=== PATIENT | female | born 1985 | race Caucasian/White ===

== ENCOUNTER 2018-01-12 03:07 | Inpatient (IN) | payer MEDICAID ==
[2018-01-12] MEDS: DEXTROSE 5%-LR 1,000 ML IV ×4 (04:18→19:17)
[2018-01-12 04:41] LABS: ADD MAN DIFF? NO
[2018-01-12] MEDS: LACTATED RINGER'S 1,000 ML IV (04:45)
[2018-01-12 04:46] LABS: WHITE BLOOD COUNT 9.5 10^3/ul (4.8-10.8)
[2018-01-12 04:47] LABS: BASOPHILS % 0.4 % (0.0-2.0); EOSINOPHILS # 0.3 10^3/ul (0.0-0.5); EOSINOPHILS % 2.7 % (0.0-7.0); HEMATOCRIT 36.2 % (37.0-47.0); HEMOGLOBIN 12.3 g/dl (12.0-16.0); LYMPHOCYTES # 1.5 10^3/ul (0.8-2.9); LYMPHOCYTES % 15.4 % (15.0-51.0); MEAN CORPUSCULAR HEMOGLOBIN 30.1 pg (29.0-33.0); MEAN CORPUSCULAR VOLUME 88.5 fl (82.0-101.0); MEAN PLATELET VOLUME 10.2 fl (7.4-10.4); MONOCYTE # 0.9 10^3/ul (0.3-0.9); MONOCYTES % 9.3 % (0.0-11.0); NEUTROPHIL # 6.6 10^3/ul (1.6-7.5); NEUTROPHILS % 69.9 % (39.0-77.0); PLATELET COUNT 237 10^3/UL (140-415); RED BLOOD COUNT 4.09 10^6/ul (4.20-5.40); RED CELL DISTRIBUTION WIDTH 13.2 % (11.5-14.5)
[2018-01-12] MEDS: BETAMET NA PHOS/AC(6 MG/ML) 5ML INJ IM (04:54)
[2018-01-12 04:56] LABS: ADD UMIC YES; UR ASCORBIC ACID NEGATIVE (NEGATIVE); UR BILIRUBIN (Dip) NEGATIVE (NEGATIVE); UR BLOOD (Dip) 3+ mg/dL (NEGATIVE); UR CLARITY SLIGHTLY CLOUDY (CLEAR); UR COLOR RED (YELLOW); UR GLUCOSE (Dip) NEGATIVE (NEGATIVE); UR KETONES (Dip) NEGATIVE (NEGATIVE); UR LEUKOCYTE ESTERASE (Dip) NEGATIVE Leu/ul (NEGATIVE); UR NITRITE (Dip) NEGATIVE (NEGATIVE); UR RBC > 182 /HPF (0-5); UR SPECIFIC GRAVITY (Dip) 1.008 (1.003-1.030); UR SQUAMOUS EPITHELIAL CELL FEW /HPF (FEW); UR TOTAL PROTEIN (Dip) 1+ mg/dl (NEGATIVE); UR UROBILINOGEN (Dip) NEGATIVE (NEGATIVE); UR WBC 2 /HPF (0-5)
[2018-01-12 05:05] LABS: INR 0.87; PARTIAL THROMBOPLASTIN TIME 24.1 Sec (25.0-35.0); PROTIME 11.9 Sec (11.9-14.9); PT RATIO 0.9
[2018-01-12 05:53] LABS: HEPATITIS B SURFACE ANTIGEN NEGATIVE (NEGATIVE)
[2018-01-12] MEDS: FERROUS SULFATE (EC) 325 MG TAB PO (08:50)
[2018-01-12] MEDS: PRENATAL VITAMIN PO (08:51)
[2018-01-12] MEDS: MAGNESIUM SULFATE 4 GM/100 ML 100 ML IV (09:24)
[2018-01-12] MEDS: MAGNESIUM SULFATE 20 GM/500 ML 500 ML IV ×2 (09:51→19:17)
[2018-01-12 12:33] LABS: ADD MAN DIFF? NO
[2018-01-12 12:41] LABS: BASOPHILS % 0.4 % (0.0-2.0); HEMATOCRIT 36.1 % (37.0-47.0); HEMOGLOBIN 12.3 g/dl (12.0-16.0); LYMPHOCYTES % 10.4 % (15.0-51.0); MEAN CORPUSCULAR HEMOGLOBIN 30.4 pg (29.0-33.0); MEAN CORPUSCULAR HGB CONC 34.1 g/dl (32.0-37.0); MEAN CORPUSCULAR VOLUME 89.4 fl (82.0-101.0); MEAN PLATELET VOLUME 10.1 fl (7.4-10.4); MONOCYTE # 0.1 10^3/ul (0.3-0.9); MONOCYTES % 1.4 % (0.0-11.0); NEUTROPHIL # 8.3 10^3/ul (1.6-7.5); NEUTROPHILS % 85.4 % (39.0-77.0); PLATELET COUNT 237 10^3/UL (140-415); RED BLOOD COUNT 4.04 10^6/ul (4.20-5.40)
[2018-01-12 12:41] LABS: WHITE BLOOD COUNT 9.7 10^3/ul (4.8-10.8)
[2018-01-12 13:32] LABS: MAGNESIUM 5.1 mg/dl (1.7-2.5)
[2018-01-12 14:57] LABS: RAPID PLASMA REAGIN NONREACTIVE (NR)
[2018-01-12] MEDS: AL HYDROX/MG HYDROX/SIMETH 30 ML CUP PO (23:10)
[2018-01-13 01:13] LABS: MAGNESIUM 6.4 mg/dl (1.7-2.5)
[2018-01-13] MEDS: BETAMET NA PHOS/AC(6 MG/ML) 5ML INJ IM (04:50)
[2018-01-13] MEDS: MAGNESIUM SULFATE 20 GM/500 ML 500 ML IV (05:03)
[2018-01-13 07:18] LABS: MAGNESIUM 6.7 mg/dl (1.7-2.5)
[2018-01-13] MEDS: LACTATED RINGER'S 1,000 ML IV ×2 (09:26→22:23)
[2018-01-13] MEDS: FERROUS SULFATE (EC) 325 MG TAB PO (09:26)
[2018-01-13] MEDS: DOCUSATE SODIUM 100 MG CAP PO (09:26)
[2018-01-13] MEDS: PRENATAL VITAMIN PO (09:26)
[2018-01-13 12:42] LABS: MAGNESIUM 6.6 mg/dl (1.7-2.5)
[2018-01-13] MEDS: NIFEdipine 10 MG CAP PO ×3 (13:55→23:57)
[2018-01-13] MEDS: AMOXICILLIN/CLAV 875 MG TAB PO ×2 (14:46→22:58)
[2018-01-14] MEDS: NIFEdipine 10 MG CAP PO (06:56)
[2018-01-14 08:53] LABS: ADD MAN DIFF? NO
[2018-01-14 09:02] LABS: BASOPHILS % 0.3 % (0.0-2.0); EOSINOPHILS # 0.1 10^3/ul (0.0-0.5); EOSINOPHILS % 0.4 % (0.0-7.0); HEMATOCRIT 31.9 % (37.0-47.0); HEMOGLOBIN 10.5 g/dl (12.0-16.0); LYMPHOCYTES # 1.8 10^3/ul (0.8-2.9); LYMPHOCYTES % 15.9 % (15.0-51.0); MEAN CORPUSCULAR HEMOGLOBIN 29.9 pg (29.0-33.0); MEAN CORPUSCULAR HGB CONC 32.9 g/dl (32.0-37.0); MEAN CORPUSCULAR VOLUME 90.9 fl (82.0-101.0); MONOCYTES % 8.5 % (0.0-11.0); NEUTROPHIL # 8.5 10^3/ul (1.6-7.5); NEUTROPHILS % 73.3 % (39.0-77.0); PLATELET COUNT 223 10^3/UL (140-415); RED BLOOD COUNT 3.51 10^6/ul (4.20-5.40)
[2018-01-14 09:02] LABS: WHITE BLOOD COUNT 11.5 10^3/ul (4.8-10.8)
[2018-01-14] MEDS: AMOXICILLIN/CLAV 875 MG TAB PO ×2 (09:28→22:19)
[2018-01-14] MEDS: PRENATAL VITAMIN PO (09:28)
[2018-01-14] MEDS: FERROUS SULFATE (EC) 325 MG TAB PO (09:28)
[2018-01-14] MEDS ORDERED: MAGNESIUM SULFATE 4 GM/100 ML 100 ML (09:53)
[2018-01-14] MEDS: MAGNESIUM SULFATE 4 GM/100 ML 100 ML IV (10:06)
[2018-01-14] MEDS: MAGNESIUM SULFATE 20 GM/500 ML 500 ML IV ×2 (10:32→21:59)
[2018-01-14] MEDS: LACTATED RINGER'S 1,000 ML IV (12:22)
[2018-01-14] MEDS: DOCUSATE SODIUM 100 MG CAP PO (23:26)
[2018-01-15 01:09] LABS: MAGNESIUM 5.8 mg/dl (1.7-2.5)
[2018-01-15] MEDS: LACTATED RINGER'S 1,000 ML IV ×2 (01:43→14:01)
[2018-01-15 07:28] LABS: INR 0.91; PROTIME 12.3 Sec (11.9-14.9)
[2018-01-15 07:29] LABS: PARTIAL THROMBOPLASTIN TIME 20.9 Sec (25.0-35.0)
[2018-01-15 07:32] LABS: ALANINE AMINOTRANSFERASE 24 IU/L (13-69); ALBUMIN 3.9 g/dl (3.3-4.9); ALBUMIN/GLOBULIN RATIO 1.34; ALKALINE PHOSPHATASE 144 IU/L (42-121); ANION GAP 15 (8-16); ASPARTATE AMINO TRANSFERASE 17 IU/L (15-46); BILIRUBIN,INDIRECT 0.3 mg/dl (0-1.1); BILIRUBIN,TOTAL 0.3 mg/dl (0.2-1.3); BLOOD UREA NITROGEN 9 mg/dl (7-20); CALCIUM 6.8 mg/dl (8.4-10.2); CARBON DIOXIDE 26 mmol/L (21-31); CHLORIDE 102 mmol/L (97-110); CREATININE 0.64 mg/dl (0.44-1.00); GLUCOSE 88 mg/dl (70-220); POTASSIUM 4.3 mmol/L (3.5-5.1); SODIUM 139 mmol/L (135-144); TOTAL PROTEIN 6.8 g/dl (6.1-8.1)
[2018-01-15] MEDS: MAGNESIUM SULFATE 20 GM/500 ML 500 ML IV ×2 (07:37→16:33)
[2018-01-15 07:57] LABS: HEPATITIS B SURFACE ANTIGEN NEGATIVE (NEGATIVE)
[2018-01-15 08:09] LABS: MAGNESIUM 6.4 mg/dl (1.7-2.5)
[2018-01-15] MEDS: FERROUS SULFATE (EC) 325 MG TAB PO (09:20)
[2018-01-15] MEDS: PRENATAL VITAMIN PO (09:21)
[2018-01-15] MEDS: DOCUSATE SODIUM 100 MG CAP PO (09:21)
[2018-01-15] MEDS: AMOXICILLIN/CLAV 875 MG TAB PO (09:28)
[2018-01-15 11:51] LABS: MAGNESIUM 6.4 mg/dl (1.7-2.5)
[2018-01-15 16:06] LABS: RAPID PLASMA REAGIN NONREACTIVE (NR)
[2018-01-15] MEDS: MAGNESIUM HYDROXIDE 30ML CUP PO (18:06)
[2018-01-15] MEDS: CEPHALEXIN 500 MG CAP PO (18:31)
[2018-01-15 18:56] LABS: MAGNESIUM 6.5 mg/dl (1.7-2.5)
[2018-01-15] MEDS: ACETAMINOPHEN 325 MG TAB PO (22:15)
[2018-01-15] MEDS: SENNA TAB PO (22:16)
[2018-01-16] MEDS: CEPHALEXIN 500 MG CAP PO ×4 (00:20→17:35)
[2018-01-16] MEDS ORDERED: OXYTOCIN 30 UNITS/LR 500 ML IV (00:28)
[2018-01-16 01:39] LABS: MAGNESIUM 6.5 mg/dl (1.7-2.5)
[2018-01-16] MEDS: LACTATED RINGER'S 1,000 ML IV ×2 (02:36→17:34)
[2018-01-16] MEDS: MAGNESIUM SULFATE 20 GM/500 ML 500 ML IV ×2 (02:40→14:10)
[2018-01-16 10:12] LABS: RUBELLA ANTIBODY - IGG <0.90 index
[2018-01-16] MEDS: FERROUS SULFATE (EC) 325 MG TAB PO (14:21)
[2018-01-16] MEDS: PRENATAL VITAMIN PO (14:22)
[2018-01-16] MEDS: NIFEdipine 10 MG CAP PO (20:29)
[2018-01-17] MEDS: NIFEdipine 10 MG CAP PO ×5 (00:25→23:46)
[2018-01-17] MEDS: CEPHALEXIN 500 MG CAP PO ×5 (00:25→23:45)
[2018-01-17] MEDS: LACTATED RINGER'S 1,000 ML IV ×2 (06:07→16:55)
[2018-01-17 06:21] LABS: ADD MAN DIFF? NO
[2018-01-17 06:41] LABS: BASOPHILS % 0.4 % (0.0-2.0); EOSINOPHILS # 0.2 10^3/ul (0.0-0.5); EOSINOPHILS % 2.2 % (0.0-7.0); HEMATOCRIT 33.4 % (37.0-47.0); HEMOGLOBIN 11.1 g/dl (12.0-16.0); LYMPHOCYTES # 1.8 10^3/ul (0.8-2.9); LYMPHOCYTES % 19.8 % (15.0-51.0); MEAN CORPUSCULAR HEMOGLOBIN 30.4 pg (29.0-33.0); MEAN CORPUSCULAR HGB CONC 33.2 g/dl (32.0-37.0); MEAN CORPUSCULAR VOLUME 91.5 fl (82.0-101.0); MEAN PLATELET VOLUME 9.9 fl (7.4-10.4); MONOCYTE # 0.7 10^3/ul (0.3-0.9); MONOCYTES % 7.7 % (0.0-11.0); NEUTROPHIL # 6.3 10^3/ul (1.6-7.5); PLATELET COUNT 236 10^3/UL (140-415); RED BLOOD COUNT 3.65 10^6/ul (4.20-5.40)
[2018-01-17 06:41] LABS: WHITE BLOOD COUNT 9.2 10^3/ul (4.8-10.8)
[2018-01-17] MEDS: PRENATAL VITAMIN PO (08:53)
[2018-01-17] MEDS: DOCUSATE SODIUM 100 MG CAP PO ×2 (08:53→21:18)
[2018-01-17] MEDS: FERROUS SULFATE (EC) 325 MG TAB PO (08:53)
[2018-01-18] MEDS: LACTATED RINGER'S 1,000 ML IV ×2 (00:17→10:06)
[2018-01-18] MEDS: CEPHALEXIN 500 MG CAP PO ×3 (05:56→17:50)
[2018-01-18] MEDS: NIFEdipine 10 MG CAP PO ×3 (05:58→17:51)
[2018-01-18] MEDS: DOCUSATE SODIUM 100 MG CAP PO (09:18)
[2018-01-18] MEDS: FERROUS SULFATE (EC) 325 MG TAB PO (09:18)
[2018-01-18] MEDS: MAGNESIUM HYDROXIDE 30ML CUP PO (09:18)
[2018-01-18] MEDS: PRENATAL VITAMIN PO (09:18)
[2018-01-18 10:31] LABS: RUBELLA ANTIBODY - IGM <20.00 AU/mL
== END 2018-01-18 21:00 | disposition home or self-care (01) | DRG 782 ==
LOC: OBT 03:07 → L-D 01-14 06:40 → OBT 04:51 → PP1 04:52
DX: O44.03 Complete placenta previa NOS or without hemorrhage, third trimester (principal); O62.8 Other abnormalities of forces of labor; Z3A.34 34 weeks gestation of pregnancy
CPT/HCPCS: 36415; 76815; 76817; 80053; 81001; 83735; 85025; 85610; 85730; 86592; 86762; 86850; 86900; 86901; 86920; 87086; 87340; 96360; 96372

== ENCOUNTER → 2018-02-21 15:40 | Inpatient (IN) | payer MEDICAID ==
[2018-02-18 11:05] LABS: ADD MAN DIFF? NO
[2018-02-18] MEDS: LACTATED RINGER'S 1,000 ML IV ×3 (11:05→23:44)
[2018-02-18 11:06] LABS: BASOPHILS % 0.5 % (0.0-2.0); EOSINOPHILS # 0.1 10^3/ul (0.0-0.5); EOSINOPHILS % 1.5 % (0.0-7.0); HEMATOCRIT 35.8 % (37.0-47.0); LYMPHOCYTES # 1.7 10^3/ul (0.8-2.9); LYMPHOCYTES % 19.5 % (15.0-51.0); MEAN CORPUSCULAR HEMOGLOBIN 29.6 pg (29.0-33.0); MEAN CORPUSCULAR HGB CONC 33.5 g/dl (32.0-37.0); MEAN CORPUSCULAR VOLUME 88.4 fl (82.0-101.0); MEAN PLATELET VOLUME 10.5 fl (7.4-10.4); MONOCYTE # 0.7 10^3/ul (0.3-0.9); MONOCYTES % 8.6 % (0.0-11.0); NEUTROPHIL # 5.9 10^3/ul (1.6-7.5); NEUTROPHILS % 68.6 % (39.0-77.0); PLATELET COUNT 245 10^3/UL (140-415); RED BLOOD COUNT 4.05 10^6/ul (4.20-5.40); RED CELL DISTRIBUTION WIDTH 13.5 % (11.5-14.5)
[2018-02-18 11:06] LABS: WHITE BLOOD COUNT 8.6 10^3/ul (4.8-10.8)
[2018-02-18 11:28] LABS: INR 0.92; PROTIME 12.4 Sec (11.9-14.9)
[2018-02-18 13:27] LABS: HEPATITIS B SURFACE ANTIGEN NEGATIVE (NEGATIVE)
[2018-02-18] MEDS: LACTATED RINGER'S 1,000 ML IV* (15:35)
[2018-02-18 17:16] LABS: RAPID PLASMA REAGIN NONREACTIVE (NR)
[2018-02-18] MEDS: CEFAZOLIN 2 GM/50 ML (PMX) 50 ML IV (21:34)
[2018-02-18] MEDS: OXYTOCIN 30 UNITS/LR 500 ML IV (21:36)
[2018-02-19] MEDS: ONDANSETRON 4 MG INJ IV (00:59)
[2018-02-19] MEDS: CLINDAMYCIN 300 MG CAP PO ×5 (00:59→23:55)
[2018-02-19] MEDS: CEFAZOLIN 2 GM/50 ML (PMX) 50 ML IV ×3 (00:59→16:48)
[2018-02-19] MEDS: LACTATED RINGER'S 1,000 ML IV ×3 (01:39→18:02)
[2018-02-19] MEDS: LANOLIN 7 GM TUBE TOP (05:41)
[2018-02-19 08:20] LABS: ADD MAN DIFF? NO
[2018-02-19 08:28] LABS: BASOPHILS % 0.2 % (0.0-2.0); EOSINOPHILS % 0.1 % (0.0-7.0); HEMATOCRIT 34.4 % (37.0-47.0); HEMOGLOBIN 11.5 g/dl (12.0-16.0); LYMPHOCYTES # 1.1 10^3/ul (0.8-2.9); LYMPHOCYTES % 8.3 % (15.0-51.0); MEAN CORPUSCULAR HEMOGLOBIN 29.9 pg (29.0-33.0); MEAN CORPUSCULAR HGB CONC 33.4 g/dl (32.0-37.0); MEAN CORPUSCULAR VOLUME 89.6 fl (82.0-101.0); MEAN PLATELET VOLUME 10.9 fl (7.4-10.4); MONOCYTE # 0.8 10^3/ul (0.3-0.9); MONOCYTES % 5.9 % (0.0-11.0); NEUTROPHIL # 11.3 10^3/ul (1.6-7.5); NEUTROPHILS % 84.8 % (39.0-77.0); PLATELET COUNT 212 10^3/UL (140-415); RED BLOOD COUNT 3.84 10^6/ul (4.20-5.40); RED CELL DISTRIBUTION WIDTH 13.4 % (11.5-14.5)
[2018-02-19 08:28] LABS: WHITE BLOOD COUNT 13.4 10^3/ul (4.8-10.8)
[2018-02-19] MEDS: KETOROLAC 30 MG INJ IV ×2 (10:06→18:03)
[2018-02-19] MEDS: SENNA/DOCUSATE NA (8.6MG/50MG) TAB PO ×2 (10:06→21:58)
[2018-02-19] MEDS: IBUPROFEN 800 MG TAB PO (21:58)
[2018-02-20] MEDS: IBUPROFEN 800 MG TAB PO ×3 (05:31→21:44)
[2018-02-20] MEDS: CLINDAMYCIN 300 MG CAP PO ×3 (05:31→18:03)
[2018-02-20] MEDS: LACTATED RINGER'S 1,000 ML IV (07:44)
[2018-02-20 09:01] LABS: ADD MAN DIFF? NO
[2018-02-20 09:14] LABS: BASOPHILS % 0.2 % (0.0-2.0); EOSINOPHILS # 0.1 10^3/ul (0.0-0.5); HEMATOCRIT 38.3 % (37.0-47.0); HEMOGLOBIN 12.4 g/dl (12.0-16.0); LYMPHOCYTES # 1.5 10^3/ul (0.8-2.9); LYMPHOCYTES % 12.9 % (15.0-51.0); MEAN CORPUSCULAR HEMOGLOBIN 29.3 pg (29.0-33.0); MEAN CORPUSCULAR HGB CONC 32.4 g/dl (32.0-37.0); MEAN CORPUSCULAR VOLUME 90.5 fl (82.0-101.0); MEAN PLATELET VOLUME 10.7 fl (7.4-10.4); MONOCYTE # 0.8 10^3/ul (0.3-0.9); MONOCYTES % 7.2 % (0.0-11.0); PLATELET COUNT 242 10^3/UL (140-415); RED BLOOD COUNT 4.23 10^6/ul (4.20-5.40); RED CELL DISTRIBUTION WIDTH 13.7 % (11.5-14.5)
[2018-02-20 09:14] LABS: WHITE BLOOD COUNT 11.5 10^3/ul (4.8-10.8)
[2018-02-20] MEDS: SENNA/DOCUSATE NA (8.6MG/50MG) TAB PO ×2 (09:15→21:44)
[2018-02-20] MEDS: BISACODYL 10 MG SUPP PR ×2 (18:03→18:54)
[2018-02-21] MEDS: CLINDAMYCIN 300 MG CAP PO ×3 (00:05→12:09)
[2018-02-21] MEDS: IBUPROFEN 800 MG TAB PO ×2 (05:33→13:27)
[2018-02-21] MEDS: MEASLES,MUMPS,RUBELLA VACCINE INJ SC* (09:00)
[2018-02-21] MEDS: DIPHTH/TET/ACEL PERTUSS (ADULT) 0.5 ML VIAL IM* (09:00)
[2018-02-21] MEDS: SENNA/DOCUSATE NA (8.6MG/50MG) TAB PO (10:13)
[~2018-02-21 15:40] MED LIST: BUPIVACAINE 0.75%/DEXT (SPINAL) 2 ML INJ; CARBOPROST 250 MCG INJ IM; DIPHENHYDRAMINE 50 MG INJ IV; HYDROCODONE/APAP (5/325) TAB PO; METHYLERGONOVINE 0.2 MG INJ IM; MISOPROSTOL 200 MCG TAB PR; NA PHOSPHATE/BIPHOS 133 ML ENEMA PR; NALOXONE (0.4 MG/ML) INJ IV; ONDANSETRON 4 MG INJ; OXYCODONE/ACETAMINOPHEN (5/325) TAB PO; OXYTOCIN 10 UNIT INJ; OXYTOCIN 30 UNITS/LR 500 ML BAG IV; OXYTOCIN 30 UNITS/LR 500 ML IV; PHENYLephrine (100 MCG/ML) 5ML SYG; SCOPOLAMINE 1.5 MG PATCH; morphine 2 MG INJ IV; morphine SULFATE/PF (10 MG/10 ML) INJ
== END | disposition home or self-care (01) | DRG 766 ==
PROVIDERS: Obstetrics & Gynecology
PROC: 10D00Z1 Extraction of Products of Conception, Low, Open Approach (ICD-10-PCS; principal; 2018-02-18 14:00)
PROC: 0UB70ZZ Excision of Bilateral Fallopian Tubes, Open Approach (ICD-10-PCS; 2018-02-18 14:00)
DX: O44.03 Complete placenta previa NOS or without hemorrhage, third trimester (principal); Z3A.37 37 weeks gestation of pregnancy; Z37.0 Single live birth; Z30.2 Encounter for sterilization
CPT/HCPCS: 85025; 85610; 85730; 86592; 86850; 86900; 86901; 86920; 87340; 88302; 99464